=== PATIENT | female | born 1950 | race Caucasian/White ===

== ENCOUNTER → 2021-07-19 | Outpatient (CLI) | payer MEDICARE ==
[~2021-07-19] MED LIST: CAPTOPRIL50 MG PO; DIFLUCAN150 MG PO; FOSAMAX35 MG PO; KEFLEX500 MG PO; LOMOTIL 0.025 M1 TA1 PO; LOVASTATIN40 MG; METOPROLOL SR25 MG PO; TRIAMTERENE AND1 CAP PO; ZOFRAN ODT4 MG SL
== END ==
LOC: RAD 09:17
PROVIDERS: ATTEND Internal Medicine
DX: M81.0 Age-related osteoporosis without current pathological fracture (principal)